=== PATIENT | female | born 1935 | race Caucasian/White ===

== ENCOUNTER 2017-08-07 10:43 | Observation (INO) | payer MEDICARE, BC ==
[2017-08-07] MEDS ORDERED: 0.9 % SODIUM CHLORIDE 1,000 ML BAG IV ONE ×2 (10:49→11:39)
--- NOTE | 2017-08-07 10:54 | Emergency Department Record ---
History of Present Illness - General Chief complaint: Nausea, Vomiting, Diarrhea Stated complaint: DIARRHEA Time Seen by Provider: 08/07/17 10:49 Source: Patient Mode of Arrival: Ambulatory Limitations: No limitations - History of Present Illness Initial comments: 82 yo female presents with 5 days of diarrhea. The diarrhea is watery. No blood. No fevers. No recent hospitalizations, antibiotics, or known exposures. No abdominal pain. No vomiting. She is feeling weak and fatigued. PCP is Dr Sorenson in [place]. She is here today with her daughter. She thinks she has lost 20 pounds. She is eating very little. This causes diarrhea. He has elevated cholesterol and atrial fib. She does not take anticoagulation. She has elected to only take aspirin. She additionally noted a sore on her right medial leg for about 2 weeks. MD complaint: Diarrhea -: Days(s) (5) Description of Vomiting: Watery Description of Diarrhea: Water Radiation: None Severity: Mild Quality: Cramping Consistency: Intermittent Improves with: None Worsens with: Eating Associated Symptoms: Malaise - Related Data Home Medications Medication Instructions Recorded Confirmed Last Taken Atorvastatin Calcium 40 mg PO DAILY 08/07/17 08/07/17 1 Day Ago ~08/06/17 Carvedilol [Coreg] 3.125 mg PO DAILY 08/07/17 08/07/17 1 Day Ago ~08/06/17 Furosemide [Lasix] 20 mg PO DAILY 08/07/17 08/07/17 1 Day Ago ~08/06/17 Losartan Potassium [Cozaar] 50 mg PO DAILY 08/07/17 08/07/17 1 Day Ago ~08/06/17 Simvastatin [Zocor] 10 mg PO DAILY 08/07/17 08/07/17 1 Day Ago ~08/06/17 Triamterene/Hydrochlorothiazid 1 each PO DAILY 08/07/17 08/07/17 1 Day Ago [Triamterene-Hctz 75-50 mg Tab] ~08/06/17 Allergies Allergy/AdvReac Type Severity Reaction Status Date / Time No Known Drug Allergies Allergy Verified 08/07/17 10:53 Review of Systems Constitutional: Reports: Malaise, Weakness. Denies: Chills, Fever Eyes: Denies: Eye discharge, Eye pain, Photophobia, Vision change ENT: Denies: Congestion, Throat pain Respiratory: Denies: Cough, Dyspnea Cardiovascular: Denies: Chest pain, Syncope Endocrine: Reports: Fatigue. Denies: Polydipsia, Polyuria Gastrointestinal: Reports: Diarrhea. Denies: Abdominal pain, Constipation, Hematemesis, Hematochezia, Melena, Nausea, Vomiting Genitourinary: Denies: Dysuria, Urgency Musculoskeletal: Denies: Arthralgia, Back pain, Myalgia Skin: Denies: Bruising, Change in color, Rash Neurological: Denies: Headache, Numbness, Weakness Psychiatric: Denies: Anxiety Hematological/Lymphatic: Denies: Easy bleeding, Easy bruising Physical Exam - General General Appearance: Alert, Oriented x3, Cooperative, No acute distress Limitations: No limitations - Head Head exam: Normal inspection - Eye Eye exam: Normal appearance. negative: Conjunctival injection, Scleral icterus - ENT ENT exam: Normal exam Ear exam: Normal external inspection Nasal Exam: Normal inspection Mouth exam: Normal external inspection - Neck Neck exam: Normal inspection, Full ROM. negative: Tenderness - Respiratory Respiratory exam: Normal lung sounds bilaterally. negative: Respiratory distress - Cardiovascular Cardiovascular Exam: Regular rate, Normal rhythm, Normal heart sounds - GI/Abdominal GI/Abdominal exam: Soft. negative: Rebound, Rigid, Tenderness - Rectal Rectal exam: Deferred - exam: Deferred - Extremities Extremities exam: Normal inspection, Full ROM, Normal capillary refill. negative: Tenderness - Back Back exam: Denies: CVA tenderness (R), CVA tenderness (L) - Neurological Neurological exam: Alert, Normal gait, Oriented X3 - Psychiatric Psychiatric exam: Normal affect, Normal mood - Skin Skin exam: Dry, Intact, Normal color, Warm Course - Reevaluation(s) Reevaluation #1: 08/07/17 11:37 The labs were reviewed The CBC was unremarkable The CMP with K of 3.3, CR is 1.4 Mild increase in LFT's. She is listed to be on 2 statins 08/07/17 15:06 The stool demonstrated many WBC's The stool was otherwise negative for all other studies She continues to have numerous stools. No pain Waiting for the US report. 08/07/17 16:12 The ultrasound was reviewed. She has stones in the GB. NO thickened wall of the GB, no biliary duct dilation; few liver cyst noted, 5cm liver mass noted. The patient and her daughter were informed. This is non emergent and will need to be follow up with her PCP with MRI. They are aware of the importance of outpatient MRI follow up to rule out a cancer. Medical Decision Making - Lab Data Result diagrams: 08/07/17 11:03 08/07/17 11:03 Disposition Disposition: Admit Clinical Impression: Diarrhea, Dehydration Disposition: Still a Patient at [facility] Decision to Admit: Admit from ER Decision to Admit Date: 08/07/17 Decision to Admit Time: 16:17 Condition: (1) Good Time of Disposition: 16:17 Quality - Quality Measures Quality Measures: N/A - Blood Pressure Screening Does Patient Have Any of the Following: Active Dx of HTN Blood Pressure Classification: Hypertensive Reading Systolic Measurement: 145 Diastolic Measurement: 69 Screening for High Blood Pressure: Patient Exclusion, Hx of HTN [[id number]]
[2017-08-07 11:09] LABS: HEMATOCRIT 42.4 % (35.0-47.0); HEMOGLOBIN 14.7 gm/dl (11.6-16.0); MEAN CORPUSCULAR HEMOGLOBIN 30.5 pg (27-33); MEAN CORPUSCULAR HGB CONC 34.7 g/dl (32-36); MEAN PLATELET VOLUME 10.1 fl (7.4-10.4); PLATELET COUNT 278 K/uL (130-400); RED BLOOD COUNT 4.82 M/uL (3.80-5.40); RED CELL DISTRIBUTION WIDTH 13.4 % (11.5-14.5); WHITE BLOOD COUNT W/O DIFF 11.6 K/uL (4.2-12.2)
[2017-08-07 11:31] LABS: ALB/GLOB RATIO 1.7 (1.1-1.8); ALBUMIN 4.5 g/dL (4.0-5.0); BILIRUBIN,TOTAL 0.9 mg/dL (0.2-1.0); CREATININE 1.4 mg/dL (0.5-0.9); TOTAL PROTEIN 7.2 g/dL (6.6-8.7)
[2017-08-07] MEDS ORDERED: POTASSIUM BICARB./CIT AC 25 MEQ EFF.TAB PO STA (11:38)
[2017-08-07 12:40] LABS: CRYPTOSPORIDIUM PARVUM ANTIGEN NOT DETECTED (NOT DETECT); GIARDIA LAMBLIA ANTIGEN NOT DETECTED (NOT DETECT); ROTOVIRUS NOT DETECTED (NOT DETECT)
[2017-08-07 13:09] LABS: STOOL FOR POLYS MANY WBC'S OBSERVED (NO WBC'S)
[2017-08-07 13:29] LABS: MOLECULAR C DIFF TOXIN SCREEN NOT DETECTED (NOT DETECT)
[2017-08-07 14:30] LABS: URINE APPEARANCE CLEAR; URINE BILIRUBIN NEGATIVE (NEGATIVE); URINE BLOOD NEGATIVE (NEGATIVE); URINE COLOR YELLOW; URINE GLUCOSE (UA) NEGATIVE (NEGATIVE); URINE KETONE NEGATIVE (NEGATIVE); URINE LEUKOCYTE ESTERASE NEGATIVE (NEGATIVE); URINE NITRITE NEGATIVE (NEGATIVE); URINE PROTEIN NEGATIVE (NEGATIVE); URINE UROBILINOGEN 0.2 E.U./dL (0.20 - 1.00)
[2017-08-07] MEDS ORDERED: ONDANSETRON HCL IV 4 MG/2 ML VIAL IVP PRN (16:49)
[2017-08-07] MEDS: POTASSIUM CHLORIDE/D5-0.9%NACL 20 MEQ/1,000 ML BAG IV SCH (19:42)
[2017-08-07] MEDS: LOPERAMIDE 2 MG CAPSULE PO PRN (21:05)
[2017-08-08] MEDS: POTASSIUM CHLORIDE/D5-0.9%NACL 20 MEQ/1,000 ML BAG IV SCH (06:21)
[2017-08-08] MEDS: LOPERAMIDE 2 MG CAPSULE PO PRN (06:22)
[2017-08-08 07:00] LABS: HEMATOCRIT 36.7 % (35.0-47.0); HEMOGLOBIN 12.2 gm/dl (11.6-16.0); MEAN CELL VOLUME 89.3 fl (81-97); MEAN CORPUSCULAR HEMOGLOBIN 29.7 pg (27-33); MEAN CORPUSCULAR HGB CONC 33.2 g/dl (32-36); MEAN PLATELET VOLUME 11.4 fl (7.4-10.4); PLATELET COUNT 209 K/uL (130-400); RED BLOOD COUNT 4.11 M/uL (3.80-5.40); RED CELL DISTRIBUTION WIDTH 13.1 % (11.5-14.5); WHITE BLOOD COUNT W/O DIFF 9.9 K/uL (4.2-12.2)
[2017-08-08 07:09] LABS: ALB/GLOB RATIO 1.6 (1.1-1.8); ALBUMIN 3.4 g/dL (4.0-5.0); ALKALINE PHOSPHATASE 261 U/L (35-104); ALT/SGPT 46 U/L (<33); AST/SGOT 38 U/L (10.0-35.0); BLOOD UREA NITROGEN 9 mg/dL (8-23); CREATININE 0.9 mg/dL (0.5-0.9); EST GLOMERULAR FILTRATION RATE > 60 mL/min; GLUCOSE,RANDOM 95 mg/dL (74-109); TOTAL PROTEIN 5.5 g/dL (6.6-8.7)
[2017-08-08] MEDS ORDERED: CARVEDILOL 3.125 MG TABLET PO SCH (10:00)
[2017-08-08] MEDS ORDERED: LOSARTAN POTASSIUM 25 MG TABLET PO SCH (10:00)
[2017-08-08] MEDS ORDERED: POTASSIUM CHLORIDE 20 MEQ TABLET PO ONE (11:03)
--- NOTE | 2017-08-08 12:24 | History & Physical ---
History of Present Illness - Date of Service Date of Service for History & Physical: 08/08/17 - History of Present Illness Admitting Diagnosis: Diarrhea, Dehydration History of Present Illness: Mrs. Shearer is an 82 year-old female who presented to the ED on 08/07/18 with complaint of diarrhea for 5 days. The diarrhea is watery. No blood. No fevers. No recent hospitalizations, antibiotics, or known exposures. No abdominal pain. No vomiting. She was feeling weak and fatigued. PCP is Dr Sorenson in [place]. She is here today with her daughter. She thinks she has lost 20 pounds. She is eating very little. This causes diarrhea. Her history includes elevated cholesterol, early dementia, and atrial fib. She does not take anticoagulation. She has elected to only take aspirin. In the ED, her vital signs were stable. Her CBC was unremarkable, CMP revealed a K of 3.3, CR of 1.4. Mild increase in LTF's, however, she is on 2 statins. Her stool demonstrated many WBCs, but negative for all other studies. She continued to have numerous stools, even incontinent of stool at times. Abdominal US revealed gallstones (pt. denies pain), no thickened gallbladder wall or bilary duct dilation, few liver cysts, and a 5cm liver mass. The patient and daughter were informed that liver mass was nonemergent, but will require outpatient follow up with her PCP and MRI to rule out cancer. Patient was admitted for observation for dehydration and diarrhea, planning IV fluids and anti-diarrheal. 08/08/17: Pt. is resting comfortably in bed, her daughter is at her bedside. She states she is feeling much improved, less weak. She states she is still having several loose stools, but the frequency has decreased since starting immodium. Her K was 3.2 this morning, she is receiving 20mEq/dextrose/NS at 125ml/hr in her IV. 40 mEq of po potassium ordered and will plan to recheck CMP at 1600. Pt. was interested in advancing her diet and trying some oatmeal. She did tolerate it well with no nausea/abdominal pain. Will plan to d/c home this evening if repeat K has improved and if pt. continues to tolerate advancing diet. PCP: Dr. Sorenson Travel Screening - Travel/Exposure Within Last 30 Days Have you traveled within the last 30 days?: No - Travel/Exposure Within Last Year Have you traveled outside the [place] in the last year?: No - Additonal Travel Details Have you been exposed to anyone with a communicable illness?: No - Travel Symptoms Symptom Screening: Headache, Diarrhea Review of Systems Constitutional: Reports: Malaise, Weakness. Denies: Chills, Fever Eyes: Denies: Eye discharge, Eye pain, Photophobia, Vision change ENT: Denies: Congestion, Throat pain Respiratory: Denies: Cough, Dyspnea Cardiovascular: Denies: Chest pain, Syncope Endocrine: Reports: Fatigue. Denies: Polydipsia, Polyuria Gastrointestinal: Reports: Diarrhea. Denies: Abdominal pain, Constipation, Hematemesis, Hematochezia, Melena, Nausea, Vomiting Genitourinary: Denies: Dysuria, Urgency Musculoskeletal: Denies: Arthralgia, Back pain, Myalgia Skin: Denies: Bruising, Change in color, Rash Neurological: Denies: Headache, Numbness, Weakness Psychiatric: Denies: Anxiety Hematological/Lymphatic: Denies: Easy bleeding, Easy bruising Past Medical History - SOCIAL HISTORY Smoking Status: Never smoker Alcohol Use: None Drug Use: None - RESPIRATORY Hx Respiratory Disorders: No - CARDIOVASCULAR Hx Hypertension: Yes Hx Irregular Heartbeat: Yes (A-fib) - NEURO Hx Dementia: Yes Comment:: carotid stenosis, opted no procedures - GI Hx GI Disorders: No - Hx Genitourinary Disorders: No - ENDOCRINE Hx Diabetes: No Hx Thyroid Disease: No - MUSCULOSKELETAL Hx Musculoskeletal Disorders: No - PSYCH Hx Psych Problems: No - HEMATOLOGY/ONCOLOGY Hx Anemia: Yes (when younger) Family Medical History Any Significant Family History?: No H&P Meds/Allergies - Allergies Allergies: Allergies Allergy/AdvReac Type Severity Reaction Status Date / Time No Known Drug Allergies Allergy Verified 08/07/17 10:53 - Home Medications Home Medications Medication Instructions Recorded Confirmed Last Taken Atorvastatin Calcium 40 mg PO DAILY 08/07/17 08/07/17 1 Day Ago ~08/06/17 Carvedilol [Coreg] 3.125 mg PO DAILY 08/07/17 08/07/17 1 Day Ago ~08/06/17 Furosemide [Lasix] 20 mg PO DAILY 08/07/17 08/07/17 1 Day Ago ~08/06/17 Losartan Potassium [Cozaar] 50 mg PO DAILY 08/07/17 08/07/17 1 Day Ago ~08/06/17 Simvastatin [Zocor] 10 mg PO DAILY 08/07/17 08/07/17 1 Day Ago ~08/06/17 Triamterene/Hydrochlorothiazid 1 each PO DAILY 08/07/17 08/07/17 1 Day Ago [Triamterene-Hctz 75-50 mg Tab] ~08/06/17 - Active Medications Active Medications: Current Medications Carvedilol (Coreg) 3.125 mg PO DAILY [facility] Last Admin: 08/08/17 11:02 Dose: 3.125 mg Potassium Chloride/Dextrose/Sod Cl () 20 meq in 1,000 mls @ 125 mls/hr IV Q8H [facility] Last Infusion: 08/08/17 06:25 Dose: Infused Loperamide HCl (Immodium) 2 mg PO Q8H [facility] Losartan Potassium (Cozaar) 50 mg PO DAILY [facility] Last Admin: 08/08/17 11:02 Dose: 50 mg Ondansetron HCl (Zofran) 4 mg IVP Q4H PRN PRN Reason: NAUSEA Physical Exam - Vital Signs Vital Signs: Vital Signs - Last 24 Hrs Temp Pulse Resp BP Pulse Ox 08/08/17 09:00 58 L 16 08/08/17 08:00 98.1 F 58 L 16 136/56 97 08/07/17 21:07 98.0 F 58 L 20 141/65 98 08/07/17 17:40 18 08/07/17 16:49 97.3 F L 57 L 18 136/72 99 08/07/17 16:19 55 L 18 124/48 98 08/07/17 14:24 56 L 18 123/43 99 08/07/17 12:32 59 L 16 117/45 97 - General General Appearance: Alert, Oriented x3, Cooperative, No acute distress Limitations: No limitations - Head Head exam: Normal inspection - Eye Eye exam: Normal appearance. negative: Conjunctival injection, Scleral icterus - ENT ENT exam: Normal exam Ear exam: Normal external inspection Nasal Exam: Normal inspection Mouth exam: Normal external inspection - Neck Neck exam: Normal inspection, Full ROM. negative: Tenderness - Respiratory Respiratory exam: Normal lung sounds bilaterally. negative: Respiratory distress - Cardiovascular Cardiovascular Exam: Regular rate, Normal rhythm, Normal heart sounds - GI/Abdominal GI/Abdominal exam: Soft. negative: Rebound, Rigid, Tenderness - Rectal Rectal exam: Deferred - exam: Deferred - Extremities Extremities exam: Normal inspection, Full ROM, Normal capillary refill. negative: Tenderness - Back Back exam: Denies: CVA tenderness (R), CVA tenderness (L) - Neurological Neurological exam: Alert, Normal gait, Oriented X3 - Psychiatric Psychiatric exam: Normal affect, Normal mood - Skin Skin exam: Dry, Intact, Normal color, Warm Results - Labs Result Diagrams: 08/08/17 06:00 08/08/17 06:00 Labs Last 24 Hours: Laboratory Results - last 24 hr 08/07/17 08/07/17 08/07/17 11:03 12:00 12:00 WBC RBC Hgb Hct MCV MCH MCHC RDW Plt Count MPV Neutrophils % Eosinophils % Basophils % Lymphocytes Monocytes Eosinophil Count Sodium Potassium Chloride Carbon Dioxide Anion Gap BUN Creatinine Estimated GFR Random Glucose Calcium Total Bilirubin AST ALT Alkaline Phosphatase Total Protein Albumin Globulin Albumin/Globulin Ratio Urine Color Yellow Urine Appearance Clear Urine pH 7.0 Ur Specific [place] 1.010 Urine Protein Negative Urine Glucose (UA) Negative Urine Ketones Negative Urine Blood Negative Urine Nitrite Negative Urine Bilirubin Negative Urine Urobilinogen 0.2 Ur Leukocyte Esterase Negative Stool Occult Blood Negative Stool for White Cells Many wbc's observed H Rotavirus Antigen Not detected C. difficile Ag & Toxin Not detected Cryptosporid parvum Ag Not detected Giardia lamblia Ag Not detected 08/08/17 08/08/17 06:00 06:00 WBC 9.9 RBC 4.11 Hgb 12.2 Hct 36.7 MCV 89.3 MCH 29.7 MCHC 33.2 RDW 13.1 Plt Count 209 MPV 11.4 H Neutrophils % 46.0 L Eosinophils % Not Reportable Basophils % Not Reportable Lymphocytes 12.0 L Monocytes 5.0 Eosinophil Count 37.0 H Sodium 143 Potassium 3.2 L Chloride 105 Carbon Dioxide 25.0 Anion Gap 13.0 BUN 9 Creatinine 0.9 Estimated GFR > 60 Random Glucose 95 Calcium 8.5 L Total Bilirubin 0.50 AST 38 H ALT 46 H Alkaline Phosphatase 261 H Total Protein 5.5 L Albumin 3.4 L Globulin 2.1 Albumin/Globulin Ratio 1.6 Urine Color Urine Appearance Urine pH Ur Specific [place] Urine Protein Urine Glucose (UA) Urine Ketones Urine Blood Urine Nitrite Urine Bilirubin Urine Urobilinogen Ur Leukocyte Esterase Stool Occult Blood Stool for White Cells Rotavirus Antigen C. difficile Ag & Toxin Cryptosporid parvum Ag Giardia lamblia Ag VTE H&P Assessment - Risk for VTE Risk for VTE: Yes Risk Level: High Risk Assessment Date: 08/08/17 Risk Assessment Time: 12:26 VTE Orders Placed or Will Be Placed: Yes Plan - Detailed Diagnosis and Plan (1) Dehydration Current Visit: Yes Status: Acute Base Code: E86.0 - DEHYDRATION Comment: -Pt. presented to ED on 08/07/17 with 5-day hx of diarrhea, dehydration likely secondary to diarrhea -K on admission was 3.3, repeat this am was 3.2. Pt. is receiving 20mEq/1000 NS in her IV, ordered additional 40mEq PO and will recheck K at 1600. If improved, will plan to d/c home this evening. (2) Diarrhea Current Visit: Yes Status: Acute Base Code: R19.7 - DIARRHEA, UNSPECIFIED Comment: 08/08/17: -Pt. presented to ED on 08/07/17 with 5 day hx of diarrhea -Stool studies negative for infectious cause of diarrhea -Immodium 2mg q8h scheduled (3) Liver mass Current Visit: Yes Status: Acute Base Code: R16.0 - HEPATOMEGALY, NOT ELSEWHERE CLASSIFIED Comment: 08/08/17: -5cm liver mass seen on abdominal US on 08/07/17. Recommend follow up outpatient with PCP- MRI to r/o cancer (4) At risk for deep venous thrombosis Current Visit: Yes Status: Acute Base Code: Z91.89 - OTH PERSONAL RISK FACTORS, NOT ELSEWHERE CLASSIFIED Comment: 08/08/17: -High risk for DVT with hx of a-fib and no anticoagulation except for dialy ASA. Will order prophylaxis for tonight if pt. not discharged this evening. (5) Full code status Current Visit: Yes Status: Acute Base Code: Z78.9 - OTHER SPECIFIED HEALTH STATUS Comment: 08/08/17 -Pt. is full code
[2017-08-08] MEDS ORDERED: LOPERAMIDE 2 MG CAPSULE PO SCH (14:00)
[2017-08-08 16:44] LABS: ALB/GLOB RATIO 1.7 (1.1-1.8); ALBUMIN 3.5 g/dL (4.0-5.0); BILIRUBIN,TOTAL 0.4 mg/dL (0.2-1.0); TOTAL PROTEIN 5.6 g/dL (6.6-8.7)
--- NOTE | 2017-08-08 17:25 | Discharge Summary ---
Providers Discharge Summary Date: 08/08/17 Date of admission: 08/07/17 16:48 Expected Date of Discharge: 08/08/17 Attending physician: PANDA CHEN Primary care physician: LAMAR RICHARD M.D. Physical Exam - Vital Signs Vital Signs: Vital Signs - Last 24 Hrs Temp Pulse Resp BP Pulse Ox 08/08/17 09:00 58 L 16 08/08/17 08:00 98.1 F 58 L 16 136/56 97 08/07/17 21:07 98.0 F 58 L 20 141/65 98 08/07/17 17:40 18 - General General Appearance: Alert, Oriented x3, Cooperative, No acute distress Limitations: No limitations - Head Head exam: Normal inspection - Eye Eye exam: Normal appearance. negative: Conjunctival injection, Scleral icterus - ENT ENT exam: Normal exam Ear exam: Normal external inspection Nasal Exam: Normal inspection Mouth exam: Normal external inspection - Neck Neck exam: Normal inspection, Full ROM. negative: Tenderness - Respiratory Respiratory exam: Normal lung sounds bilaterally. negative: Respiratory distress - Cardiovascular Cardiovascular Exam: Regular rate, Normal rhythm, Normal heart sounds - GI/Abdominal GI/Abdominal exam: Soft. negative: Rebound, Rigid, Tenderness - Rectal Rectal exam: Deferred - exam: Deferred - Extremities Extremities exam: Normal inspection, Full ROM, Normal capillary refill. negative: Tenderness - Back Back exam: Denies: CVA tenderness (R), CVA tenderness (L) - Neurological Neurological exam: Alert, Normal gait, Oriented X3 - Psychiatric Psychiatric exam: Normal affect, Normal mood - Skin Skin exam: Dry, Intact, Normal color, Warm Hospitalization - Hospitalization Admission Diagnosis: Diarrhea, Dehydration - Problem List/Discharge Diagnosis (1) Dehydration Current Visit: Yes Status: Acute Base Code: E86.0 - DEHYDRATION Comment: -Pt. presented to ED on 08/07/17 with 5-day hx of diarrhea, dehydration likely secondary to diarrhea -K on admission was 3.3, repeat this am was 3.2. Pt. is receiving 20mEq/1000 NS in her IV, ordered additional 40mEq PO and will recheck K at 1600. If improved, will plan to d/c home this evening. (2) Diarrhea Current Visit: Yes Status: Acute Base Code: R19.7 - DIARRHEA, UNSPECIFIED Comment: 08/08/17: -Pt. presented to ED on 08/07/17 with 5 day hx of diarrhea -Stool studies negative for infectious cause of diarrhea -Immodium 2mg q8h scheduled (3) Liver mass Current Visit: Yes Status: Acute Base Code: R16.0 - HEPATOMEGALY, NOT ELSEWHERE CLASSIFIED Comment: 08/08/17: -5cm liver mass seen on abdominal US on 08/07/17. Recommend follow up outpatient with PCP- MRI to r/o cancer (4) At risk for deep venous thrombosis Current Visit: Yes Status: Acute Base Code: Z91.89 - OTH PERSONAL RISK FACTORS, NOT ELSEWHERE CLASSIFIED Comment: 08/08/17: -High risk for DVT with hx of a-fib and no anticoagulation except for dialy ASA. Will order prophylaxis for tonight if pt. not discharged this evening. (5) Full code status Current Visit: Yes Status: Acute Base Code: Z78.9 - OTHER SPECIFIED HEALTH STATUS Comment: 08/08/17 -Pt. is full code - Disposition Discharge home, self-care - Hospitalization Course Disposition: Home, Self-Care Hospital Course: Mrs. Shearer is an 82 year-old female who presented to the ED on 08/07/18 with complaint of diarrhea for 5 days. The diarrhea is watery. No blood. No fevers. No recent hospitalizations, antibiotics, or known exposures. No abdominal pain. No vomiting. She was feeling weak and fatigued. PCP is Dr Richard in [place]. She is here today with her daughter. She thinks she has lost 20 pounds. She is eating very little. This causes diarrhea. Her history includes elevated cholesterol, early dementia, and atrial fib. She does not take anticoagulation. She has elected to only take aspirin. In the ED, her vital signs were stable. Her CBC was unremarkable, CMP revealed a K of 3.3, CR of 1.4. Mild increase in LTF's, however, she is on 2 statins. Her stool demonstrated many WBCs, but negative for all other studies. She continued to have numerous stools, even incontinent of stool at times. Abdominal US revealed gallstones (pt. denies pain), no thickened gallbladder wall or bilary duct dilation, few liver cysts, and a 5cm liver mass. The patient and daughter were informed that liver mass was nonemergent, but will require outpatient follow up with her PCP and MRI to rule out cancer. Patient was admitted for observation for dehydration and diarrhea, planning IV fluids and anti-diarrheal. 08/08/17: Pt. is resting comfortably in bed, her daughter is at her bedside. She states she is feeling much improved, less weak. She states she is still having several loose stools, but the frequency has decreased since starting immodium. Her K was 3.2 this morning, she is receiving 20mEq/dextrose/NS at 125ml/hr in her IV. 40 mEq of po potassium ordered and will plan to recheck CMP at 1600. Pt. was interested in advancing her diet and trying some oatmeal. She did tolerate it well with no nausea/abdominal pain. Will plan to d/c home this evening if repeat K has improved and if pt. continues to tolerate advancing diet. 08/08/17: Pt. continues to improve. Repeat K was 4.0 and pt. is tolerating advanced diet. Will d/c home this evening. PCP: Dr. Richard Procedures: Imaging and X-Rays 08/07/17 13:07 ABDOMEN, COMPLETE [US] Stat Abnormal Labs: Abnormal Lab Results 08/07/17 08/07/17 08/08/17 Range/Units 11:03 11:03 06:00 MPV 11.4 H (7.4-10.4) fl Neutrophils % 46.0 L (47-80) % Lymphocytes 12.0 L (16-45) % Eosinophil Count 19.0 H 37.0 H (0-6) % Potassium 3.3 L (3.4-4.5) mmol/L Chloride 92 L (98-107) mmol/L Anion Gap 17.0 H (7-16) BUN (8-23) mg/dL Creatinine 1.4 H (0.5-0.9) mg/dL Calcium (8.8-10.2) mg/dL AST 57 H (10.0-35.0) U/L ALT 66 H (<33) U/L Alkaline Phosphatase 351 H (35-104) U/L Total Protein (6.6-8.7) g/dL Albumin (4.0-5.0) g/dL Stool for White Cells Many wbc's observed H (NO WBC'S) 08/08/17 08/08/17 Range/Units 06:00 16:05 MPV (7.4-10.4) fl Neutrophils % (47-80) % Lymphocytes (16-45) % Eosinophil Count (0-6) % Potassium 3.2 L (3.4-4.5) mmol/L Chloride (98-107) mmol/L Anion Gap (7-16) BUN 7 L (8-23) mg/dL Creatinine 1.0 H (0.5-0.9) mg/dL Calcium 8.5 L 8.3 L (8.8-10.2) mg/dL AST 38 H (10.0-35.0) U/L ALT 46 H 43 H (<33) U/L Alkaline Phosphatase 261 H 244 H (35-104) U/L Total Protein 5.5 L 5.6 L (6.6-8.7) g/dL Albumin 3.4 L 3.5 L (4.0-5.0) g/dL Stool for White Cells (NO WBC'S) Condition at Discharge: (2) Stable Discharge Diagnosis: diarrhea, dehydration VTE Discharge VTE Reason For No Overlap Therapy: Not Indicated (Pt. is only taking ASA as prophylaxis for her A-fib) Discharge Medications - Discharge Medications Home Medications: Ambulatory Orders Carvedilol [Coreg] 3.125 mg PO DAILY 08/07/17 [Last Taken 1 Day Ago ~08/06/17] Furosemide [Lasix] 20 mg PO DAILY 08/07/17 [Last Taken 1 Day Ago ~08/06/17] Losartan Potassium [Cozaar] 50 mg PO DAILY 08/07/17 [Last Taken 1 Day Ago ~08/06] Triamterene/Hydrochlorothiazid [Triamterene-Hctz 75-50 mg Tab] 1 each PO DAILY 08/07/17 [Last Taken 1 Day Ago ~08/06/17] Loperamide HCl [Immodium] 2 mg PO Q8H capsule 08/08/17 [Last Taken Unknown] Discharge Plan - Discharge Instructions Activity at Discharge: Increase Activity as Tolerated Diet at Discharge: Advance to Usual Diet Additional Instructions: Continue to advance your diet as tolerated, try bland foods that are high in fiber Increase fluid intake Follow up with your PCP in 5-7 days. You may need an MRI to further evaluate your liver mass. Do not take your cholesterol medications (lipitor and zocor) until you see your provider. Return to the ED if you experience any worsening symptoms, or chest pain/ pressure Quality Measures - Quality Measures Quality Measures: Advance Directives, Documentation of Current Medications in Medical Record, Elder Maltreatment Screen and Follow-Up Plan, Screening for High Blood Pressure and F/U Documented - Current Medications Quality Measure: Measure #130: Documentation of Current Medications Documentation of Current Medications: <Current Medications Documented/Reviewed> [F2914] - Blood Pressure Screening Quality Measure: Screening for High Blood Pressure and Follow-Up Documented Does Patient Have Any of the Following: Active Dx of HTN Blood Pressure Classification: Hypertensive Reading Systolic Measurement: 145 Diastolic Measurement: 69 Screening for High Blood Pressure: Patient Exclusion, Hx of HTN [G9744] - Advance Directives Quality Measure: Measure #47: Care Plan Advance Directives Established: No Advance Directives Information Provided To Patient: No Advance Directives on File: No Living Will: No Power of Medical Detail Representative: No Advance Care Planning: <Care Plan/Decision Maker Documented; Discussed & Documented> [3393F] - Elder Abuse Suspicion Index Screening: Elder Abuse Suspicion Index Screening Rely on people for bathing, dressing, shopping, banking, etc: No Prevented from getting food, clothes, medication, etc: No Made to feel shamed or threatened by someone: No Forced to sign papers or use money against will: No Feel afraid, touched in ways not wanted or hurt physically: No Poor eye contact, withdrawn, malnourished, cuts or bruises: No Screening Result: Negative result EASI Reference Information: Perla BOO, Carlos C, Gen D, Erika York.Development and validation of a tool to assist physicians identification of elder abuse: The Elder Abuse Suspicion Index (EASI ). Journal of Elder Abuse and Neglect, 2008; 20 (3): 276-300. - Elder Maltreatment Screen Quality Measures: Elder Maltreatment Screen and Follow-Up Plan Elder Maltreatment Screen: <Negative, No Follow-Up Plan Required> [[id number]]
--- NOTE | 2017-08-08 22:43 | ULTRASOUND REPORT ---
EXAM: ULTRASOUND ABDOMEN, COMPLETE HISTORY: ELEVATED LIVER ENZYMES. TECHNIQUE: Complete abdomen ultrasound. COMPARISON: No prior abdomen ultrasound. FINDINGS: The majority of the pancreas is visualized and appears negative with no pancreatic mass or peripancreatic fluid collection seen. The abdominal aorta appears negative with no aneurysm evident. Within the liver, there appears to be a solid mass, approximately 5.4 cm in size posteriorly in the right lobe. This is nonspecific. In addition, there appear to be multiple cysts within the liver, the largest about 3.2 cm in size. Follow-up liver MRI may be useful for further evaluation of the solid hepatic mass in particular. Numerous echogenic foci are seen in the gallbladder lumen demonstrating shadowing consistent with cholelithiasis. There also appears to be some sludge within the gallbladder. No pericholecystic fluid collection seen and the foundry manager indicates a negative sonographic Yan sign. The right kidney measures about 9 cm in length with no hydronephrosis evident. The common duct was seen and was of normal caliber. The left kidney measures about 9 cm in length with no hydronephrosis on the left as well. The spleen partially obscured by overlying rib artifact but is negative as visualized. The IVC was negative as seen. IMPRESSION: 1. CHOLELITHIASIS. NO BILIARY DILATATION IDENTIFIED. 2. NO HYDRONEPHROSIS IN EITHER KIDNEY. 3. THERE APPEAR TO BE A FEW CYSTS WITHIN THE LIVER. HOWEVER, IN ADDITION THERE APPEARS TO BE A SOLID MASS, APPROXIMATELY 5.4 CM IN SIZE POSTERIORLY IN THE RIGHT LOBE. FOLLOW-UP MRI OF THE LIVER IS SUGGESTED FOR FURTHER EVALUATION, IF NOT CONTRAINDICATED. JOB NUMBER: [id number] [facility]
== END 2017-08-08 17:50 | disposition home or self-care (01) ==
LOC: ER 10:43 → MEDSURG 16:48
PROVIDERS: ADMIT Internal Medicine; ATTEND Internal Medicine
DX: R19.7 Diarrhea, unspecified (principal); E86.0 Dehydration; R11.2 Nausea with vomiting, unspecified; I48.91 Unspecified atrial fibrillation; F03.90 Unspecified dementia, unspecified severity, without behavioral disturbance, psychotic disturbance, mood disturbance, and anxiety; I65.29 Occlusion and stenosis of unspecified carotid artery; R16.0 Hepatomegaly, not elsewhere classified
CPT/HCPCS: 83690; 87329; 80053 ×2; 89055; 87425; 81003; 82272; 87493; 85027 ×2; 76700; G0378 ×2; 96365; 96366; 96374; 99220; 99285; J3480; J7030

== ENCOUNTER 2017-10-28 14:54 | Emergency (ER) | payer MEDICARE, BC ==
[2017-10-28] MEDS ORDERED: 0.9 % SODIUM CHLORIDE 1000ML 1,000 ML IV PRN (15:52)
[2017-10-28] MEDS ORDERED: ASPIRIN 81 MG CHEWABLE TABLET PO ONE (15:52)
--- NOTE | 2017-10-28 15:59 | Emergency Department Record ---
History of Present Illness - General Chief Complaint: Shortness of breath Stated Complaint: DORIAN/HURTS TO TAKE A DEEP BREATH Time Seen by Provider: 10/28/17 15:25 Source: Patient, RN notes reviewed Mode of Arrival: Ambulatory - History of Present Illness Initial Comments: chest pain when she takes a deep breath. This started yesterday and she states it feels like when she had pleurisy. PMH of chf Onset/Timin -: Days(s) Quality: Stabbing Consistency: Intermittent Worsens With: Inspiration Associated Symptoms: Denies other symptoms Treatments Prior to Arrival: None - Related Data Previous Rx's Medication Instructions Recorded Loperamide HCl [Immodium] 2 mg PO Q8H capsule 08/08/17 Allergies Allergy/AdvReac Type Severity Reaction Status Date / Time No Known Drug Allergies Allergy Verified 10/28/17 15:29 Travel Screening - Travel/Exposure Within Last 30 Days Have you traveled within the last 30 days?: No Review of Systems Reviewed: No additional complaints except as noted below Constitutional: Reports: As per HPI. Denies: Chills, Fever, Malaise, Night sweats, Weakness, Weight change Eyes: Reports: As per HPI. Denies: Eye discharge, Eye pain, Photophobia, Vision change ENT: Reports: As per HPI. Denies: Congestion, Dental pain, Ear pain, Epistaxis , Hearing loss, Throat pain Respiratory: Reports: As per HPI. Denies: Cough, Dyspnea, Hemoptysis, Stridor, Wheezes Cardiovascular: Reports: As per HPI. Denies: Arrhythmia, Chest pain, Dyspnea on exertion, Edema, Murmurs, Orthopnea, Palpitations, Paroxysmal nocturnal dyspnea, Rheumatic Fever, Syncope Endocrine: Reports: As per HPI. Denies: Fatigue, Heat or cold intolerance, Polydipsia, Polyuria Gastrointestinal: Reports: As per HPI. Denies: Abdominal pain, Constipation, Diarrhea, Hematemesis, Hematochezia, Melena, Nausea, Vomiting Genitourinary: Reports: As per HPI. Denies: Abnormal menses, Discharge, Dyspareunia, Dysuria, Frequency, Hematuria, Incontinence, Retention, Urgency Musculoskeletal: Reports: As per HPI. Denies: Arthralgia, Back pain, Gout, Joint swelling, Myalgia, Neck pain Skin: Reports: As per HPI. Denies: Bruising, Change in color, Change in hair/ nails, Lesions, Pruritus, Rash Neurological: Reports: As per HPI. Denies: Abnormal gait, Confusion, Headache, Numbness, Paresthesias, Seizure, Tingling, Tremors, Vertigo, Weakness Psychiatric: Reports: As per HPI. Denies: Anxiety, Auditory hallucinations, Depression, Homicidal thoughts, Suicidal thoughts, Visual hallucinations Hematological/Lymphatic: Reports: As per HPI. Denies: Anemia, Blood Clots, Easy bleeding, Easy bruising, Swollen glands Past Medical History - SOCIAL HISTORY Smoking Status: Never smoker Alcohol Use: None Drug Use: None - RESPIRATORY Hx Respiratory Disorders: No - CARDIOVASCULAR Hx Cardio Disorders: Yes Hx Hypertension: Yes Hx Irregular Heartbeat: Yes (A-fib) - NEURO Hx Neuro Disorders: Yes Hx Dementia: Yes Comment:: carotid stenosis, opted no procedures - GI Hx GI Disorders: No - Hx Genitourinary Disorders: No - ENDOCRINE Hx Endocrine Disorders: No Hx Diabetes: No Hx Thyroid Disease: No - MUSCULOSKELETAL Hx Musculoskeletal Disorders: No - PSYCH Hx Psych Problems: No - HEMATOLOGY/ONCOLOGY Hx Hematology/Oncology Disorders: Yes Hx Anemia: Yes (when younger) Family Medical History Any Significant Family History?: Yes Physical Exam - General General Appearance: Alert, Oriented x3, Cooperative, No acute distress - Head Head exam: Normal inspection - Eye Eye exam: Normal appearance, PERRL Pupils: Normal accommodation - ENT ENT exam: Normal exam, Mucous membranes moist, Normal external ear exam, Normal orophraynx, TM's normal bilaterally Ear exam: Normal external inspection. negative: External canal tenderness Nasal Exam: Normal inspection. negative: Discharge, Sinus tenderness Mouth exam: Normal external inspection, Tongue normal Teeth exam: Normal inspection. negative: Dental caries Throat exam: Normal inspection. negative: Tonsillar erythema, Tonsillar exudate - Neck Neck exam: Normal inspection, Full ROM. negative: Tenderness - Respiratory Respiratory exam: Normal lung sounds bilaterally. negative: Respiratory distress - Cardiovascular Cardiovascular Exam: Regular rate, Normal rhythm, Normal heart sounds - GI/Abdominal GI/Abdominal exam: Soft, Normal bowel sounds. negative: Tenderness - Rectal Rectal exam: Deferred - exam: Deferred - Extremities Extremities exam: Normal inspection, Full ROM, Normal capillary refill. negative: Tenderness - Back Back exam: Reports: Normal inspection, Full ROM. Denies: Muscle spasm, Rash noted, Tenderness - Neurological Neurological exam: Alert, Normal gait, Oriented X3, Reflexes normal - Psychiatric Psychiatric exam: Normal affect, Normal mood - Skin Skin exam: Dry, Intact, Normal color, Warm Course Vital Signs 10/28/17 15:26 Temperature 98.3 F Pulse Rate 60 Respiratory 18 Rate Blood Pressure 154/64 Pulse Ox 97 - Reevaluation(s) Reevaluation #1: 10/28/17 18:[address] Najera and will transfer to [facility] Medical Decision Making - Data Complexity MDM Data: Labs Ordered and/or Reviewed, X-Ray Ordered and/or Reviewed (PE bilateral and bilateral infiltrates and right pleural effusion and complex mass in the liver.) - Lab Data Result diagrams: 10/28/17 16:45 10/28/17 16:00 Disposition Clinical Impression: Liver mass Chest pain Qualifiers: Chest pain type: unspecified Qualified Code(s): R07.9 - Chest pain, unspecified Pulmonary embolism Qualifiers: Pulmonary embolism type: other Chronicity: acute Acute cor pulmonale presence: without acute cor pulmonale Qualified Code(s): I26.99 - Other pulmonary embolism without acute cor pulmonale Disposition: Acute Care Hospital Transfer Condition: (2) Stable Forms: Patient Portal Access Time of Disposition: 18:59 Quality - Quality Measures Quality Measures: N/A - Blood Pressure Screening Does Patient Have Any of the Following: No, Active Dx of HTN Blood Pressure Classification: Hypertensive Reading Systolic Measurement: 154 Diastolic Measurement: 64 Screening for High Blood Pressure: Patient Exclusion, Hx of HTN [G9744]
[2017-10-28 16:56] LABS: BLOOD UREA NITROGEN 20 mg/dL (8-23); CREATININE 1.1 mg/dL (0.5-0.9); EST GLOMERULAR FILTRATION RATE 51 mL/min
[2017-10-28 16:57] LABS: BASO % 0.2 % (0-6); EOS % 3.1 % (0-6); GRAN % 74.8 % (47-80); HEMATOCRIT 34.6 % (35.0-47.0); HEMOGLOBIN 11.5 gm/dl (11.6-16.0); LYMPH % 12.4 % (16-45); MEAN CELL VOLUME 89.4 fl (81-97); MEAN CORPUSCULAR HEMOGLOBIN 29.7 pg (27-33); MEAN CORPUSCULAR HGB CONC 33.2 g/dl (32-36); MEAN PLATELET VOLUME 9.9 fl (7.4-10.4); MONO % 9.5 % (0-9); PLATELET COUNT 274 K/uL (130-400); RED BLOOD COUNT 3.87 M/uL (3.80-5.40); RED CELL DISTRIBUTION WIDTH 12.9 % (11.5-14.5)
[2017-10-28 16:58] LABS: GLUCOSE,RANDOM 107 mg/dL (74-109); PARTIAL THROMBOPLASTIN TIME 30.6 SECONDS (24.5-39.1)
[2017-10-28] MEDS ORDERED: ENOXAPARIN 100 MG/ML SYR SQ ONE (18:38)
[2017-10-28 19:09] LABS: PROTHROMBIN TIME (PATIENT) 10.9 SECONDS (9.5-12.1)
== END 2017-10-28 20:30 | disposition short-term general hospital (02) ==
LOC: ER 14:54
DX: I26.99 Other pulmonary embolism without acute cor pulmonale (principal); R07.9 Chest pain, unspecified; R06.02 Shortness of breath; I50.9 Heart failure, unspecified; I10 Essential (primary) hypertension; I48.91 Unspecified atrial fibrillation; F03.90 Unspecified dementia, unspecified severity, without behavioral disturbance, psychotic disturbance, mood disturbance, and anxiety
CPT/HCPCS: 71046; 71275; 80048; 84484; 85025; 85379; 85610; 85730; 96372; 99285; J1650